=== PATIENT | male | born 1995 | race Two or more races ===

== ENCOUNTER 2023-08-07 01:11 | Emergency (ER) | payer MEDICAID ==
[~2023-08-07] VITALS: Ht 162.6 cm; Wt 57.0 kg
[2023-08-07 01:11] VITALS: BP 136/76; PULSE 73; RESP 20; O2SAT 98
[2023-08-07] MEDS: IBUPROFEN 600 MG TAB PO ONE (01:44)
[2023-08-07] MEDS ORDERED: ACE3T PO (01:44)
== END 2023-08-07 02:58 | disposition home or self-care (01) ==
LOC: ER 01:11
DX: S62.396A Other fracture of fifth metacarpal bone, right hand, initial encounter for closed fracture (principal); Z79.899 Other long term (current) drug therapy; W22.8XXA Striking against or struck by other objects, initial encounter; Y93.89 Activity, other specified; Y92.89 Other specified places as the place of occurrence of the external cause; Y99.8 Other external cause status
CPT/HCPCS: 29125; 73130